=== PATIENT | male | born 1945 | race Caucasian/White ===

== ENCOUNTER 2018-10-09 11:11 | Emergency (ER) | payer MEDICARE, BC ==
[2018-10-09] MEDS ORDERED: ASPIRIN 81 MG TABLET, CHEWABLE PO ONE (11:15)
[2018-10-09 11:51] LABS: ABSOLUTE LYMPHOCYTES (AUTO) 0.9 10^3/uL (0.5-4.7); ABSOLUTE MONOCYTES (AUTO) 0.4 10^3/uL (0.1-1.4); ABSOLUTE NEUT (AUTO) 3.4 10^3/uL (1.7-8.2); BASOPHILS % (AUTO) 0.7 % (0-2); EOSINOPHILS % (AUTO) 0.7 % (0-6); HEMATOCRIT 38.9 % (37.9-51.0); HEMOGLOBIN 13.4 g/dL (13.5-17.0); MEAN CORPUSCULAR HEMOGLOBIN 35.1 pg (27.0-33.4); MEAN CORPUSCULAR HGB CONC 34.5 g/dL (32.0-36.0); MEAN CORPUSCULAR VOLUME 102 fl (80-97); PLATELET COUNT 162 10^3/uL (150-450); RED BLOOD COUNT 3.83 10^6/uL (4.35-5.55); RED CELL DISTRIBUTION WIDTH 14.5 % (11.5-14.0); SEGMENTED NEUTROPHILS % (AUTO) 71.6 % (42-78); TOTAL CELLS COUNTED % (AUTO) 100 %; WHITE BLOOD COUNT 4.8 10^3/uL (4.0-10.5)
[2018-10-09 11:55] LABS: ALBUMIN 3.9 g/dL (3.5-5.0); ALKALINE PHOSPHATASE 103 U/L (38-126); ANION GAP 7 (5-19); ASPARTATE AMINO TRANSFERASE 34 U/L (17-59); BILIRUBIN,DIRECT 0.1 mg/dL (0.0-0.4); BILIRUBIN,TOTAL 0.8 mg/dL (0.2-1.3); BLOOD UREA NITROGEN 17 mg/dL (7-20); CALCIUM 8.8 mg/dL (8.4-10.2); CARBON DIOXIDE 34 mmol/L (22-30); CHLORIDE 96 mmol/L (98-107); CREATINE KINASE 72 U/L (55-170); GLUCOSE 102 mg/dL (75-110); POTASSIUM 3.2 mmol/L (3.6-5.0); TOTAL PROTEIN 6.4 g/dL (6.3-8.2)
[2018-10-09 12:06] LABS: CREATINE KINASE MB 1.08 ng/mL (<4.55)
--- NOTE | 2018-10-09 12:10 | RADIOLOGY REPORT (SQ) ---
EXAM DESCRIPTION: CHEST 2 VIEWS COMPLETED DATE/TIME: 10/09/2018 12:00 pm REASON FOR STUDY: cp COMPARISON: None. EXAM PARAMETERS: NUMBER OF VIEWS: two views TECHNIQUE: Digital Frontal and Lateral radiographic views of the chest acquired. RADIATION DOSE: NA LIMITATIONS: none FINDINGS: LUNGS AND PLEURA: No opacities, masses or pneumothorax. No pleural effusion. MEDIASTINUM AND HILAR STRUCTURES: No masses or contour abnormalities. HEART AND VASCULAR STRUCTURES: Heart normal size. No evidence for failure. BONES: No acute findings. HARDWARE: Sternotomy wires are in place. OTHER: No other significant finding. IMPRESSION: NO ACUTE RADIOGRAPHIC FINDING IN THE CHEST. TECHNICAL DOCUMENTATION: JOB ID: [id number] [employer]- All Rights Reserved Reading location - IP/workstation name: [email or web address]
[2018-10-09 12:16] LABS: TROPONIN I < 0.012 ng/mL
--- NOTE | 2018-10-09 12:18 | ER Document Report ---
ED Medical Screen (RME) - General Chief Complaint: Chest Pain Stated Complaint: CHEST PAIN Time Seen by Provider: 10/09/18 12:10 Primary Care Provider: AIDEN SOTO MD [Primary Care Provider] - Follow up as needed Mode of Arrival: Ambulatory Information source: Patient Notes: This 73-year-old male presents emergency department with some burning to the left side of his chest. Reports he has a history of this but reports it feels better when he leans forward. Patient reports he was in the process of getting a myelogram done because he has some cervical irritation that makes his legs weak. They were evaluating his nerves. Patient reports that his blood pressure was up and they decided not to do the procedure because his blood pressure was up. He reports they told me not to take my blood pressure medications today and my blood pressure was up. He has not taken his medications yet. His blood pressure is 136/80. Patient denies other symptoms such as fever shortness of breath. Patient is very calm sitting in the bed no distress. Patient does have a cardiac history and has had bypass surgery. 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 He has collateral circulation and they are not planning on doing surgery. I have greeted and performed a rapid initial assessment of this patient. A comprehensive ED assessment and evaluation of the patient, analysis of test results and completion of the medical decision making process will be conducted by additional ED providers. Dictation of this chart was performed using voice recognition software; therefore, there may be some unintended grammatical errors. TRAVEL OUTSIDE OF THE [place] IN LAST 30 DAYS: No - Related Data Allergies/Adverse Reactions: acetaminophen [From Percocet] Allergy (Verified 10/09/18 09:06) oxycodone [From Percocet] Allergy (Verified 10/09/18 09:06) Past Medical History - Past Medical History Cardiac Medical History: Reports: Hx Coronary Artery Disease, Hx Heart Attack, Hx Hypertension Pulmonary Medical History: Denies: Hx Asthma, Hx Bronchitis, Hx COPD, Hx Pneumonia Neurological Medical History: Denies: Hx Cerebrovascular Accident, Hx Seizures Musculoskeltal Medical History: Reports Hx Arthritis - Immunizations Hx Diphtheria, Pertussis, Tetanus Vaccination: No Physical Exam - Vital signs Vitals: Temp 98.3 F 10/09/18 11:14 Course - Vital Signs Vital signs: Temp Pulse Resp BP Pulse Ox 98.3 F 137/84 H 94 10/09/18 11:14 10/09/18 13:01 10/09/18 13:01 - Laboratory Result Diagrams: 10/09/18 11:25 10/09/18 11:25 Laboratory results interpreted by me: 10/09/18 10/09/18 11:25 11:25 RBC 3.83 L Hgb 13.4 L MCV 102 H MCH 35.1 H RDW 14.5 H Potassium 3.2 L Chloride 96 L Carbon Dioxide 34 H Doctor's Discharge - Discharge Clinical Impression: Atypical chest pain Condition: Stable Disposition: HOME, SELF-CARE Instructions: Chest Pain of Unclear Cause ([facility]), Reflux Disease (GERD) ([facility]) Additional Instructions: Please follow-up as instructed for your myelogram Prescriptions: Sucralfate [Carafate] 1 gm PO QID 5 Days #150 oral.susp Referrals: AIDEN SOTO MD [Primary Care Provider] - Follow up as needed
--- NOTE | 2018-10-09 12:58 | ER Document Report ---
ED Cardiac - General Chief Complaint: Chest Pain Stated Complaint: CHEST PAIN Time Seen by Provider: 10/09/18 12:10 Primary Care Provider: AIDEN SOTO MD [Primary Care Provider] - Follow up as needed Mode of Arrival: Ambulatory Information source: Patient TRAVEL OUTSIDE OF THE [place] IN LAST 30 DAYS: No - HPI Notes: Patient was sent over from outpatient radiology. Patient was waiting for a myelogram. While waiting for the myelogram he developed burning left-sided chest pain. It did not radiate. It lasted about 30 minutes. He states he has absolutely no pain now. He states it felt like previous heartburn pain that he has had. The pain was mild to moderate. Nothing made it better or worse. He denies any shortness of breath or nausea. - Related Data Allergies/Adverse Reactions: acetaminophen [From Percocet] Allergy (Verified 10/09/18 09:06) oxycodone [From Percocet] Allergy (Verified 10/09/18 09:06) Past Medical History - General Information source: Patient - Social History Smoking Status: Former Smoker Frequency of alcohol use: None Drug Abuse: None Family History: Reviewed & Not Pertinent - Past Medical History Cardiac Medical History: Reports: Hx Coronary Artery Disease, Hx Heart Attack, Hx Hypertension Pulmonary Medical History: Denies: Hx Asthma, Hx Bronchitis, Hx COPD, Hx Pneumonia Neurological Medical History: Denies: Hx Cerebrovascular Accident, Hx Seizures Musculoskeletal Medical History: Reports Hx Arthritis - Immunizations Hx Diphtheria, Pertussis, Tetanus Vaccination: No Review of Systems - Review of Systems Constitutional: denies: Chills, Fever Cardiovascular: Chest pain. denies: Dyspnea Respiratory: denies: Cough, Short of breath -: Yes All other systems reviewed and negative Physical Exam - Vital signs Interpretation: Normal - General General appearance: Appears well, Alert - HEENT Head: Normocephalic, Atraumatic Eyes: Normal Pupils: PERRL - Respiratory Respiratory status: No respiratory distress Chest status: Nontender Breath sounds: Normal Chest palpation: Normal - Cardiovascular Rhythm: Regular Heart sounds: Normal auscultation Murmur: No - Abdominal Inspection: Normal Distension: No distension Bowel sounds: Normal Tenderness: Nontender Organomegaly: No organomegaly - Back Back: Normal, Nontender - Extremities General upper extremity: Normal inspection, Nontender, Normal color, Normal ROM, Normal temperature General lower extremity: Normal inspection, Nontender, Normal color, Normal ROM, Normal temperature, Normal weight bearing. No: Trixie's sign - Neurological Neuro grossly intact: Yes Cognition: Normal Orientation: AAOx4 [place] Coma Scale Eye Opening: Spontaneous Fabián Coma Scale Verbal: Oriented [place] Coma Scale Motor: Obeys Commands [place] Coma Scale Total: 15 Speech: Normal Motor strength normal: LUE, RUE, LLE, RLE Sensory: Normal - Psychological Associated symptoms: Normal affect, Normal mood - Skin Skin Temperature: Warm Skin Moisture: Dry Skin Color: Normal Course - Re-evaluation Re-evalutation: 10/09/18 12:56 Patient had chest pain today that was a burning sensation. It felt like his previous heartburn pain. It does seem to be most consistent with that. He has no EKG changes. He has unremarkable laboratories. He states he has no pain now and feels back to his baseline health. - Laboratory Result Diagrams: 10/09/18 11:25 10/09/18 11:25 Laboratory results interpreted by me: 10/09/18 10/09/18 11:25 11:25 RBC 3.83 L Hgb 13.4 L MCV 102 H MCH 35.1 H RDW 14.5 H Potassium 3.2 L Chloride 96 L Carbon Dioxide 34 H - Diagnostic Test Radiology reviewed: Image reviewed, Reports reviewed - EKG Interpretation by Me EKG shows normal: Sinus rhythm Rate: Normal - 69 Rhythm: NSR Yolyn/QRS: LBBB Discharge - Discharge Clinical Impression: Atypical chest pain Condition: Stable Disposition: HOME, SELF-CARE Instructions: Chest Pain of Unclear Cause ([facility]), Reflux Disease (GERD) ([facility]) Additional Instructions: Please follow-up as instructed for your myelogram Prescriptions: Sucralfate [Carafate] 1 gm PO QID 5 Days #150 oral.susp Referrals: AIDEN SOTO MD [Primary Care Provider] - Follow up as needed
--- NOTE | 2018-10-09 13:05 | EKG REPORT ---
SEVERITY:- ABNORMAL ECG - SINUS RHYTHM LEFT BUNDLE BRANCH BLOCK : Confirmed by: Gab Zhong MD 09-Oct-2018 13:04:31
[2018-10-09 13:18] VITALS: BP 137/84
== END 2018-10-09 13:18 | disposition home or self-care (01) ==
LOC: ER 11:11
DX: R07.89 Other chest pain (principal); Z87.891 Personal history of nicotine dependence; I25.10 Atherosclerotic heart disease of native coronary artery without angina pectoris; I10 Essential (primary) hypertension
CPT/HCPCS: 93005; 99285; 36415; 82553; 82550; 85025; 80053; 84484; 71046; 93010; A9270; 84132; 85610; 85730

== ENCOUNTER → 2018-10-09 | Day surgery (SDC) | payer MEDICARE, BC ==
[2018-10-09 09:32] VITALS: BP 152/85
[2018-10-09 09:59] LABS: PROTHROMBIN TIME 13.2 SEC (11.4-15.4)
[2018-10-09 10:00] LABS: PARTIAL THROMBOPLASTIN TIME 29.7 SEC (23.5-35.8)
== END ==
LOC: RAD 08:40
PROVIDERS: ATTEND Neurological Surgery
DX: M47.892 Other spondylosis, cervical region (principal); M48.02 Spinal stenosis, cervical region; E78.00 Pure hypercholesterolemia, unspecified; K21.9 Gastro-esophageal reflux disease without esophagitis; I10 Essential (primary) hypertension; G47.30 Sleep apnea, unspecified; Z79.01 Long term (current) use of anticoagulants
CPT/HCPCS: 36415; 84132; 85610; 85730

== ENCOUNTER 2018-10-16 08:35 | Day surgery (SDC) | payer MEDICARE, BC ==
--- NOTE | 2018-10-16 11:14 | RADIOLOGY REPORT (SQ) ---
EXAM DESCRIPTION: CT THORACIC SPINE WITH COMPLETED DATE/TIME: 10/16/2018 10:45 am REASON FOR STUDY: SPONDYLOSIS CERVICAL REGION/ STENOSIS OF CERVICAL REGION M47.892 OTHER SPONDYLOSI S, CERVICAL REGION M48.02 SPINAL STENOSIS, CERVICAL REGION COMPARISON: None. TECHNIQUE: Axial images acquired through the thoracic spine following thoracic myelography. Images reviewed with lung, soft tissue and bone windows. Reconstructed coronal and sagittal MPR images revi ewed. Images stored on PACS. All CT scanners at this facility use dose modulation, iterative reconstruction, and/or weight based d osing when appropriate to reduce radiation dose to as low as reasonably achievable (ALARA). [facility]: Dose Right [facility]: CareDose [facility]: Dose Right [facility]: Teradose 4D [facility]: [employer] RADIATION DOSE: mGy. LIMITATIONS: None. FINDINGS: VISUALIZED LUNGS: No acute opacities. No pneumothorax. SOFT TISSUES: No soft tissue swelling. No masses. VERTEBRAL BODIES: No fractures. No dislocation. No acute findings. DISCS: Multilevel disc space narrowing. No focal disc herniations. THORACIC CORD: Normal in caliber. No cord compression. ALIGNMENT: Normal. TRANSVERSE PROCESSES, POSTERIOR ELEMENTS: No fractures. No dislocation. No acute findings. HARDWARE: None in the spine. VISUALIZED RIBS: No fractures. OTHER: No other significant finding. IMPRESSION: 1. Mild degenerative changes throughout the thoracic spine with disc space narrowing. 2. No high-grade central stenosis or focal disc herniations. TECHNICAL DOCUMENTATION: JOB ID: [id number] Quality ID # [id number]: Final reports with documentation of one or more dose reduction techniques (e.g., Au tomated exposure control, adjustment of the mA and/or kV according to patient size, use of iterative reconstruction technique) 2010 [employer]- All Rights Reserved Reading location - IP/workstation name: [email or web address]
--- NOTE | 2018-10-16 11:20 | RADIOLOGY REPORT (SQ) ---
EXAM DESCRIPTION: CT CERVICAL SPINE WITH; MYELOGRAM 2 OR MORE LEVELS COMPLETED DATE/TIME: 10/16/2018 10:45 am; 10/16/2018 10:52 am REASON FOR STUDY: SPONDYLOSIS CERVICAL REGION/ STENOSIS OF CERVICAL REGION M47.892 OTHER SPONDYLOSI S, CERVICAL REGION M48.02 SPINAL STENOSIS, CERVICAL REGION COMPARISON: None. FLUORO TIME: 1.3 minutes 21 Images saved to PACS. TECHNIQUE: Myelography was discussed with the patient, and he agreed to the procedure. Under fluoroscopic localization, the left paracentral L4 level was localized. Skin marked. Timeout pe rformed. After sterile skin prep and 5 mL of 1% local lidocaine for skin and deep tissue anesthesia, a 7 cm 22 gauge spinal needle was used to access the lumbar subarachnoid space via right paracentral approach at the L4 level. Prompt return of clear cerebrospinal fluid. At this point, 9mL ofOmnipaque 300contra st was injected into the thecal sac without complication. Needle withdrawn, Band-Aid applied. After performing cervical myelogram, axial images were acquired through the cervical spine without in travenous contrast. Images reviewed with lung, soft tissue and bone windows. Reconstructed coronal and sagittal MPR images reviewed. Images stored on PACS. All CT scanners at this facility use dose modulation, iterative reconstruction, and/or weight based d osing when appropriate to reduce radiation dose to as low as reasonably achievable (ALARA). [facility]: Dose Right [facility]: CareDose [facility]: Dose Right [facility]: Teradose 4D [facility]: [employer] RADIATION DOSE: CT Rad equipment meets quality standard of care and radiation dose reduction techniq ues were employed. CTDIvol: 35.8 mGy. DLP: 1837 mGy-cm. mGy. LIMITATIONS: None. FINDINGS: ALIGNMENT: Anatomic. MINERALIZATION: Normal. VERTEBRAL BODIES: No fractures or dislocation. DISCS: C1-C2: No significant spinal stenosis or exit foraminal stenosis. C2-C3: Mild annular disc bulging. No central stenosis or foraminal narrowing. There is asymmetric l eft facet arthropathy. C3-C4: Broad-based disc/osteophyte complex. No high-grade central stenosis. There is asymmetric lef t facet arthropathy with asymmetric narrowing of the left neural foramina. C4-C5: No central stenosis. Mild bilateral foraminal narrowing left greater than right. This is sec ondary to facet arthropathy. C5-C6: Facet arthropathy with asymmetric narrowing of the right neural foramina. No high-grade centr al stenosis. C6-C7: Disc space narrowing with effacement anterior thecal sac. Asymmetric narrowing of the left ne ural foramina. C7-T1: No significant spinal stenosis or exit foraminal stenosis. FACETS, LATERAL MASSES, POSTERIOR ELEMENTS: No fractures. No dislocation. No acute findings. VISUALIZED RIBS: No fractures. LUNG APICES AND SOFT TISSUES: No significant or acute findings. OTHER: No other significant finding. IMPRESSION: 1. Broad-based disc/ osteophyte complex at C3-4. There is asymmetric left facet arthro jose resulting in asymmetric left foraminal narrowing. 2. Mild bilateral foraminal narrowing at C4-5 left greater than right secondary to facet arthropathy . 3. Asymmetric narrowing of the right neural foramina at C5-C6 due due to facet arthropathy. 4. Asymmetric narrowing of the left neural foramina at C6-C7. COMMENT: Patient medication list reviewed: Yes- Quality ID# [id number]:Eligible professional attests to doc umenting in the medical record they obtained, updated, or reviewed the patient's current medications. TECHNICAL DOCUMENTATION: JOB ID: [id number] Quality ID 145: Final reports for procedures using fluoroscopy that document radiation exposure linda fantasma, or exposure time and number of fluorographic images (if radiation exposure indices are not avail able) Quality ID # [id number]: Final reports with documentation of one or more dose reduction techniques (e.g., Au tomated exposure control, adjustment of the mA and/or kV according to patient size, use of iterative reconstruction technique) 2010 [employer]- All Rights Reserved Reading location - IP/workstation name: [email or web address]
[2018-10-16 13:21] VITALS: BP 120/62
== END 2018-10-16 13:10 | disposition home or self-care (01) ==
LOC: RAD 08:35
PROVIDERS: ATTEND Neurological Surgery
DX: M47.892 Other spondylosis, cervical region (principal); M48.02 Spinal stenosis, cervical region
CPT/HCPCS: 72126; 72129; 72270